=== PATIENT | female | born 1985 | race Caucasian/White ===

== ENCOUNTER 2016-11-09 00:35 | Emergency (ER) | payer SELFPAY ==
[~2016-11-09] VITALS: Ht 157.5 cm; Wt 77.3 kg
[~2016-11-09 00:35] MED LIST: ACYCLOVIR400 MG PO; AMOXICILLIN 50500 MG PO; AMOXICILLIN875 MG PO; BACTRIM DS 8001 TAB PO; CELEXA 20MG20 MG/TAB PO; CEPHALEXIN500 M1 PO; CLEOCIN HC150 MG/CAP PO; DESOGEN; FLEXERIL10 MG PO; FLINTSTONES1 CTB PO; IBU600 MG PO; LEXAPRO 10MG10 MG PO; NO HOME MEDICATIONS; NORCO 325 MG-51 TAB PO; PERCOCET 325 MG1 TA2 PO; PERCOCET 5/321 UDTAB PO; PHENERGAN 25 TA25 MG PO; PRENATAL1 TA2 PO; PROMETHAZINE12.5 M5 PO; RANITIDINE75 MG PO; ULTRAM50 MG PO; VICODIN 5/5001 UDTAB PO; ZOVIRAX400 MG PO
[2016-11-09 00:41] VITALS: BP 145/86; TEMP 98.6
[2016-11-09 01:35] VITALS: PULSE 89
== END 2016-11-09 01:39 | disposition home or self-care (01) ==
LOC: COL.ER 00:35
DX: K08.89 Other specified disorders of teeth and supporting structures (principal); K03.81 Cracked tooth

== ENCOUNTER → 2017-01-07 | Outpatient (CLI) | payer SELFPAY | LOC: COL.RAD 08:13 | DX: N28.1 Cyst of kidney, acquired (principal); R76.8 Other specified abnormal immunological findings in serum; R11.0 Nausea ==

== ENCOUNTER → 2017-01-15 | Outpatient (CLI) | payer SELFPAY | LOC: COL.RAD 05:57 | DX: R10.11 Right upper quadrant pain (principal); R11.0 Nausea | CPT/HCPCS: A9537 ==

== ENCOUNTER 2017-02-27 12:46 | Day surgery (SDC) | payer SELFPAY ==
[~2017-02-27] VITALS: Ht 157.5 cm; Wt 84.1 kg
[2017-02-27 13:10] VITALS: BP 125/81; PULSE 83; TEMP 97.1
[2017-02-27] MEDS ORDERED: PRILOSEC 20MG20 MG PO (13:18)
[2017-02-27] MEDS ORDERED: ADVIL200 MG PO (13:19)
[2017-02-27 14:34] VITALS: BP 112/72; PULSE 84
[2017-02-27 14:45] VITALS: BP 105/69; PULSE 82; TEMP 97.4
[2017-02-27 15:00] VITALS: BP 111/74; PULSE 84
[2017-02-27 15:15] VITALS: BP 107/73; PULSE 83
== END 2017-02-27 15:35 | disposition home or self-care (01) ==
LOC: SDCO 12:46
DX: K21.0 Gastro-esophageal reflux disease with esophagitis (principal); K30 Functional dyspepsia; D64.9 Anemia, unspecified; B19.20 Unspecified viral hepatitis C without hepatic coma; K58.9 Irritable bowel syndrome, unspecified
CPT/HCPCS: J2250; J3010

== ENCOUNTER 2018-07-13 03:18 | Emergency (ER) | payer SELFPAY ==
[~2018-07-13] VITALS: Ht 154.9 cm; Wt 77.3 kg
[~2018-07-13 03:18] MED LIST changes: +ADVIL200 MG PO; +COLACE 100100 MG/CAP PO; +DILAUDID 2MG TAB2 MG PO; +MOTRIN 600600 MG/TAB PO; +PRILOSEC 20MG20 MG PO; +TYLENOL W/COD1 UDTAB PO
[2018-07-13 03:21] VITALS: BP 169/99; TEMP 97.7
[2018-07-13] MEDS ORDERED: NORCO 325 MG-51 TAB PO (04:49)
[2018-07-13 05:20] VITALS: PULSE 86
== END 2018-07-13 05:21 | disposition home or self-care (01) ==
LOC: COL.ER 03:18
DX: K02.9 Dental caries, unspecified (principal); K21.9 Gastro-esophageal reflux disease without esophagitis; I10 Essential (primary) hypertension; F17.210 Nicotine dependence, cigarettes, uncomplicated; Z90.49 Acquired absence of other specified parts of digestive tract; Z87.81 Personal history of (healed) traumatic fracture
CPT/HCPCS: J0561; J1885

== ENCOUNTER 2018-10-05 04:43 | Emergency (ER) | payer SELFPAY ==
[~2018-10-05] VITALS: Ht 154.9 cm; Wt 75.0 kg
[2018-10-05 04:49] VITALS: TEMP 98.2
[2018-10-05] MEDS ORDERED: CLEOCIN HCL300 MG PO (05:13)
[2018-10-05 06:25] VITALS: BP 160/102; PULSE 80
== END 2018-10-05 06:27 | disposition home or self-care (01) ==
LOC: COL.ER 04:43
DX: K02.9 Dental caries, unspecified (principal); F17.210 Nicotine dependence, cigarettes, uncomplicated; Z98.51 Tubal ligation status
CPT/HCPCS: J1170

== ENCOUNTER 2018-12-14 00:54 | Emergency (ER) | payer SELFPAY ==
[~2018-12-14] VITALS: Ht 154.9 cm; Wt 77.3 kg
[~2018-12-14 00:54] MED LIST changes: +CLEOCIN HCL300 MG PO
[2018-12-14 00:57] VITALS: BP 188/119; PULSE 100; TEMP 98.4
[2018-12-14] MEDS ORDERED: AMOXICILLIN 8751 TAB PO (01:23)
== END 2018-12-14 01:33 | disposition home or self-care (01) ==
LOC: COL.ER 00:54
DX: K08.89 Other specified disorders of teeth and supporting structures (principal); F17.210 Nicotine dependence, cigarettes, uncomplicated

== ENCOUNTER 2020-11-03 00:40 | Emergency (ER) | payer SELFPAY ==
[~2020-11-03] VITALS: Ht 154.9 cm; Wt 77.3 kg
[~2020-11-03 00:40] MED LIST changes: +AMOXICILLIN 8751 TAB PO
[2020-11-03 00:43] VITALS: TEMP 98.3
[2020-11-03 01:31] LABS: BASO % 0.3 % (0.0-2.0); EOS # 0.2 (0.0-0.7); EOS % 1.6 % (0-4.0); GRAN % 77.9 % (42.2-75.2); HEMATOCRIT 38.1 % (37.0-47.0); HEMOGLOBIN 12.8 g/dl (12.5-16.0); LYMPH # 1.6 (1.2-3.4); LYMPH % 12.8 % (20.0-51.0); MEAN CELL VOLUME 85 fl (80.0-100.0); MEAN CORPUSCULAR HEMOGLOBIN 29 pg (27.0-31.0); MEAN CORPUSCULAR HGB CONC 34 g/dl (33.0-37.0); MEAN PLATELET VOLUME 8.7 fl (7.4-10.4); MONO # 0.9 (0.1-0.6); MONO % 6.9 % (1.7-9.3); PLATELET COUNT 254 K/mm3 (130-400); RED BLOOD COUNT 4.49 M/mm3 (4.10-5.30); REDCELL DISTRIBUTION WIDTH-CV 12.9 % (11.5-14.5)
[2020-11-03 01:43] LABS: ALANINE AMINOTRANSFERASE 24 U/L (4-34); ALBUMIN 3.5 gm/dL (3.5-5.0); ALKALINE PHOSPHATASE 72 U/L (50-136); ANION GAP 5 mmol/L (7-16); AST,SGOT 34 U/L (15-37); BLOOD UREA NITROGEN 10 mg/dL (7-17); CALCIUM 8.8 mg/dL (8.4-10.2); CARBON DIOXIDE 25 mmol/L (22-30); CHLORIDE 104 mmol/L (98-107); CREATININE, serum 0.61 (0.52-1.25); GLUCOSE 103 mg/dL (74-106); POTASSIUM 3.3 mmol/L (3.4-5.0); SODIUM 133 mmol/L (137-145); TOTAL PROTEIN 6.7 gm/dL (6.4-8.2)
[2020-11-03 02:05] LABS: LIPASE 18 U/L (23-300)
[2020-11-03 02:13] LABS: C-REACTIVE PROTEIN > 9.0 mg/dL (0.0-0.9)
[2020-11-03 04:51] LABS: COLLECTION METHOD CLEAN CATCH
[2020-11-03 05:03] LABS: MUCOUS Present /lpf; PH 5 (5-8); URINE APPEARANCE Cloudy; URINE BACTERIA None Seen /hpf; URINE BILIRUBIN Negative (NEGATIVE); URINE BLOOD 3+ (NEGATIVE); URINE COLOR Amber; URINE GLUCOSE Negative (NEGATIVE); URINE KETONE 2+ (NEGATIVE); URINE LEUKOCYTE ESTERASE Negative (NEGATIVE); URINE NITRATE Negative (NEGATIVE); URINE PROTEIN(semi-quant) 2+ (NEGATIVE); URINE RBC >50 /hpf
[2020-11-03] MEDS ORDERED: NORCO 325 MG-51 TAB PO (05:54)
[2020-11-03] MEDS ORDERED: CIPRO 500MG TA500 MG PO (05:54)
[2020-11-03] MEDS ORDERED: FLAGYL500 MG PO (05:54)
[2020-11-03 06:20] VITALS: BP 126/73; PULSE 84
== END 2020-11-03 06:20 | disposition home or self-care (01) ==
LOC: COL.ER 00:40
PROVIDERS: Emergency Medicine
DX: K52.9 Noninfective gastroenteritis and colitis, unspecified (principal); F17.210 Nicotine dependence, cigarettes, uncomplicated; Z32.02 Encounter for pregnancy test, result negative; Z90.49 Acquired absence of other specified parts of digestive tract; Z87.442 Personal history of urinary calculi
CPT/HCPCS: J2405; J3010; J7030; Q9967

== ENCOUNTER 2023-02-19 18:15 | Emergency (ER) | payer SELFPAY ==
[~2023-02-19] VITALS: Ht 154.9 cm; Wt 65.9 kg
[~2023-02-19 18:15] MED LIST changes: +CIPRO 500MG TA500 MG PO; +DOXYCYCLINE 10100 MG PO; +FLAGYL500 MG PO
[2023-02-19 18:25] VITALS: BP 152/101; PULSE 111; TEMP 98.6
== END 2023-02-19 20:00 | disposition left against medical advice (07) ==
LOC: COL.ER 18:15
DX: N89.8 Other specified noninflammatory disorders of vagina (principal)

== ENCOUNTER 2023-05-22 14:31 | Emergency (ER) | payer SELFPAY ==
[~2023-05-22] VITALS: Ht 157.5 cm; Wt 68.2 kg
[2023-05-22 16:27] LABS: COLLECTION METHOD CLEAN CATCH
[2023-05-22 16:43] LABS: PH 5.5 (5.0-8.5); URINE APPEARANCE Clear (CLEAR/HAZY); URINE BLOOD Negative (NEGATIVE); URINE COLOR Amber (YELLOW); URINE GLUCOSE Negative (NEGATIVE); URINE KETONE Negative (NEGATIVE); URINE NITRATE Negative (NEGATIVE); URINE PROTEIN(semi-quant) Negative (NEGATIVE); URINE RBC 0-2 /hpf (0-2); URINE UROBILINOGEN 0.2 E.U/dL (0.2-1.0)
[2023-05-22 16:44] LABS: HIV 1/2 Antibodies Non-Reactive; HIV-1p24 Antigen Non-Reactive
[2023-05-22 17:28] VITALS: BP 147/102; PULSE 93; TEMP 98
[2023-05-22] MEDS ORDERED: PREDNISOLO15 MG/5 M3 PO ×2 (17:32)
== END 2023-05-22 17:28 | disposition home or self-care (01) ==
LOC: COL.ER 14:31
PROVIDERS: Emergency Medicine
DX: Z11.3 Encounter for screening for infections with a predominantly sexual mode of transmission (principal); K04.7 Periapical abscess without sinus

== ENCOUNTER 2023-06-13 16:09 | Emergency (ER) | payer SELFPAY ==
[~2023-06-13] VITALS: Ht 154.9 cm; Wt 68.2 kg
[~2023-06-13 16:09] MED LIST changes: +PREDNISOLO15 MG/5 M3 PO
[2023-06-13 16:14] VITALS: TEMP 98.3
[2023-06-13] MEDS ORDERED: Ibuprofen 400 MG TAB PO ONE (17:00)
[2023-06-13] MEDS ORDERED: CLEOCIN HC150 MG/CAP PO (17:28)
[2023-06-13] MEDS ORDERED: Clindamycin 150 MG CAP PO ONE (17:30)
[2023-06-13 17:36] VITALS: BP 149/107; PULSE 88
== END 2023-06-13 18:00 | disposition home or self-care (01) ==
LOC: COL.ER 16:09
DX: L02.413 Cutaneous abscess of right upper limb (principal); F17.200 Nicotine dependence, unspecified, uncomplicated